=== PATIENT | male | born 1950 | race Caucasian/White ===

== ENCOUNTER → 2019-09-15 | Outpatient (CLI) | payer MEDICARE ==
[2013-08-01 15:12] VITALS: BP 120/72
[~2019-09-15] MED LIST: GLIP2.5T16 PO; GLIP5TAB10 PO; HYDR-2765 PO; LISI2.5T PO; METF500T16 PO; SIMV40TA18 PO; SITA100T PO; TAMS0.4C97 PO
== END | disposition home or self-care (01) ==
LOC: LAB 13:27
PROVIDERS: ATTEND Internal Medicine Gastroenterology
DX: Z11.59 Encounter for screening for other viral diseases (principal)
CPT/HCPCS: U0003-CS

== ENCOUNTER → 2019-09-19 | Day surgery (SDC) | payer MEDICARE ==
[~2019-09-19] MED LIST changes: +ASPI-630 PO; +IV RINGERS,LACTATED 1000ML 1,000 ML IV SCH; +LIDOCAINE 2% PF 5 ML VIAL. ONE; +LINA5TAB PO; +MULT-658 PO; +NITR0.4T22 SL; +PROPOFOL 10 MG/ML (20ML) VIAL. IV ONE
[2019-09-19 08:30] VITALS: BP 108/61
--- NOTE | 2019-09-19 08:54 | CONS ---
DATE OF CONSULTATION: 09/19/2019 REFERRING PHYSICIAN: Devon Sargent MD REASON FOR CONSULTATION: History of colonic polyps. HISTORY OF PRESENT ILLNESS: A 68-year-old male whose past medical history is significant for diabetes, hyperlipidemia, skin cancer, cardiac stents, history of colonic polyps, is seen for interval colon exam. Bowel habits are regular without diarrhea or constipation. He previously had loose stools with metformin, which improved once he cut back on the dose. Weight and appetite are stable. There has been no bleeding. He is otherwise without additional complaints. PAST MEDICAL HISTORY: Diabetes, hyperlipidemia, history of skin cancer, and cardiac stents. ALLERGIES: None. MEDICATIONS: Include aspirin, glipizide, Tradjenta, lisinopril, metformin, multivitamin, nitroglycerin, and simvastatin. SOCIAL HISTORY: He is a nonsmoker and social drinker. FAMILY HISTORY: Significant for breast cancer with sister, CVA with the mother, diabetes with father, hypertension with the brother and VT with the mother. PAST SURGICAL HISTORY: Significant for CABG and stenting. REVIEW OF SYSTEMS: Per records. PHYSICAL EXAMINATION: GENERAL: Reveals a well-nourished, well-developed male who is alert, cooperative, in no acute distress. VITAL SIGNS: Temperature 97.2, pulse 80, and respiratory rate 18. LUNGS: Clear. CARDIOVASCULAR: Reveals an S1, S2 without S3, S4 or appreciable murmur. ABDOMEN: With a soft abdomen, normal bowel sounds, without appreciable hepatosplenomegaly. EXTREMITIES: No cyanosis, clubbing or edema. IMPRESSION AND PLAN: History of colonic polyps. Surveillance exam is recommended at this time. Risks and benefits of procedure including risk of hemorrhage and perforation and operation was discussed and the patient is willing to proceed. TU DIAL MD DR: HAWK/ketty JOB#: [id number] / [id number]
--- NOTE | 2019-09-22 18:06 | PATHOLOGY ---
[facility] Accession Number: [id number] . 01 Material submitted: . colon - TRANSVERSE COLON POLYP. Modifiers: transverse . 01 Clinical history: . CRCS . 02 Diagnosis: Colon biopsies, transverse colon polyp: - Hyperplastic polyp with focal mild acute and chronic inflammation. 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 02 Comment: There are no adenomatous changes or evidence of malignancy. (JPM:vegetable loader; 09/22/2019) . 02 Electronically signed: . Cesar Hayden MD, Pathologist NPI- [id number] . 01 Gross description: . The specimen is received in formalin, labeled "Bebeto Velázquez, transverse colon polyp". Received are two segments of pale almazan soft tissue ranging in size from 0.5 to 0.6 cm in maximum dimensions. The specimen is submitted entirely in cassette A1. ([facility]; 09/19/2019) [facility] 09/19/2019 1614 Local . 02 Pathologist provided ICD-10: K63.5, K52.9 . 02 CPT . 231743 Specimen Comment: A courtesy copy of this report has been sent to [phone], [phone] Specimen Comment: [id number] Specimen Comment: Report sent to / DR DENNISON Performed at: 01 [facility] [address], [place] [id number] MD Azael Liz MD Phone: [phone] Performed at: 02 [facility] [address] [place], [place] [id number] MD Cesar Hayden MD Phone: [phone]
== END ==
LOC: ENDOS 07:07
PROVIDERS: ATTEND Internal Medicine Gastroenterology
DX: Z12.11 Encounter for screening for malignant neoplasm of colon (principal); K63.5 Polyp of colon; K64.0 First degree hemorrhoids; E11.9 Type 2 diabetes mellitus without complications; E78.5 Hyperlipidemia, unspecified; Z85.828 Personal history of other malignant neoplasm of skin; Z72.89 Other problems related to lifestyle; Z95.1 Presence of aortocoronary bypass graft; Z79.84 Long term (current) use of oral hypoglycemic drugs
CPT/HCPCS: 45380; 88305; J2704; J3490